=== PATIENT | female | born 1960 | race Two or more races ===

== ENCOUNTER 2022-04-16 16:21 | Emergency (ER) | payer OTHER ==
[~2022-04-16] VITALS: Ht 160 cm; Wt 69.8 kg
[2022-04-16 16:27] VITALS: BP 155/128
[2022-04-16] MEDS ORDERED: METF-414 MT (16:30)
== END 2022-04-16 16:40 | disposition home or self-care (01) ==
LOC: ER 16:21
DX: Z76.0 Encounter for issue of repeat prescription (principal); E11.9 Type 2 diabetes mellitus without complications; I10 Essential (primary) hypertension
CPT/HCPCS: 99283